=== PATIENT | male | born 1995 | race Two or more races ===

== ENCOUNTER 2025-02-18 23:28 | Emergency (ER) | payer SELFPAY ==
[2025-02-18 23:45] VITALS: BP 140/90; PULSE 76; RESP 20; TEMP 37; O2SAT 96
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
== END 2025-02-19 04:12 ==
PROVIDERS: Emergency Provider Emergency Medicine
DX: Z02.89 Encounter for other administrative examinations (principal); S06.0XAA Concussion with loss of consciousness status unknown, initial encounter; S16.1XXA Strain of muscle, fascia and tendon at neck level, initial encounter; S20.219A Contusion of unspecified front wall of thorax, initial encounter; S39.012A Strain of muscle, fascia and tendon of lower back, initial encounter; V53.0XXA Driver of pick-up truck or van injured in collision with car, pick-up truck or van in nontraffic accident, initial encounter; Y92.410 Unspecified street and highway as the place of occurrence of the external cause
CPT/HCPCS: 70450; 71046; 72125; 99284